=== PATIENT | female | born 1975 | race African-American/Black ===

== ENCOUNTER 2023-01-19 07:49 | Emergency (ER) | payer SELFPAY ==
[~2023-01-19] VITALS: Ht 162.6 cm; Wt 59.0 kg
[2023-01-19] MEDS ORDERED: TETANUS, DIPHTHERIA, PERTUSSIS VAC/PF 0.5ML (>10YR OLD) IM ONE (08:15)
[2023-01-19] MEDS ORDERED: AMOXICILLIN/POTASSIUM CLAVULANATE 875/125MG TAB PO ONE (08:15)
[2023-01-19] MEDS ORDERED: AMOX1TAB16 MT (09:22)
[2023-01-19] MEDS ORDERED: AMOX-405 MT (09:22)
[2023-01-19 10:09] VITALS: BP 126/85
== END 2023-01-19 10:10 | disposition home or self-care (01) ==
LOC: EDBD → ER 07:49
DX: S41.151A Open bite of right upper arm, initial encounter (principal); I10 Essential (primary) hypertension; W54.0XXA Bitten by dog, initial encounter; Y93.9 Activity, unspecified; Y92.9 Unspecified place or not applicable
CPT/HCPCS: 90715; 99283; Z7610

== ENCOUNTER 2023-01-21 09:40 | Emergency (ER) | payer MEDICAID, MEDICARE ==
[~2023-01-21] VITALS: Ht 170.2 cm; Wt 40.0 kg
[~2023-01-21 09:40] MED LIST: AMOX-405 MT; AMOX1TAB16 MT
[2023-01-21 09:47] VITALS: BP 186/99
[2023-01-21] MEDS ORDERED: IBUP-2029 MT (10:18)
[2023-01-21] MEDS ORDERED: AMOX1TAB16 MT (10:18)
== END 2023-01-21 10:40 | disposition home or self-care (01) ==
LOC: ER 09:40
DX: Z48.00 Encounter for change or removal of nonsurgical wound dressing (principal); I10 Essential (primary) hypertension; Z76.0 Encounter for issue of repeat prescription
CPT/HCPCS: 99281; Z7610

== ENCOUNTER 2023-01-31 10:36 | Emergency (ER) | payer MEDICAID, MEDICARE ==
[~2023-01-31] VITALS: Ht 152.4 cm; Wt 40.0 kg
[~2023-01-31 10:36] MED LIST changes: +IBUP-2029 MT
[2023-01-31] MEDS ORDERED: IBUP-2029 MT (12:24)
[2023-01-31] MEDS ORDERED: IBUPROFEN 600MG TABLET PO ONE (12:30)
[2023-01-31 12:32] VITALS: BP 137/89
== END 2023-01-31 13:45 | disposition home or self-care (01) ==
LOC: ER 10:47
DX: Z48.00 Encounter for change or removal of nonsurgical wound dressing (principal)
CPT/HCPCS: 99282

== ENCOUNTER 2024-12-12 16:08 | Emergency (ER) | payer MEDICARE ==
[~2024-12-12] VITALS: Ht 152.4 cm; Wt 40.3 kg
[2024-12-12 16:31] VITALS: O2SAT 100
[2024-12-12 18:34] VITALS: BP 169/97; PULSE 88; RESP 16; TEMP 36.7; O2SAT 100
== END 2024-12-12 18:35 | disposition home or self-care (01) ==
LOC: ER 16:08
DX: H00.12 Chalazion right lower eyelid (principal); I10 Essential (primary) hypertension; J45.909 Unspecified asthma, uncomplicated; Z79.899 Other long term (current) drug therapy; Z91.013 Allergy to seafood
CPT/HCPCS: 99281

== ENCOUNTER 2025-02-17 02:29 | Emergency (ER) | payer MEDICAID, OTHER ==
[~2025-02-17] VITALS: Ht 157.5 cm; Wt 59.0 kg
[2025-02-17 02:32] VITALS: O2SAT 99
[2025-02-17] MEDS: KETOROLAC 30MG/ML VIAL IM ONE (02:56)
[2025-02-17] MEDS ORDERED: IBUP-2029 MT (03:48)
[2025-02-17 04:13] VITALS: BP 132/90; PULSE 78; RESP 16; TEMP 36.8; O2SAT 99
== END 2025-02-17 04:14 | disposition home or self-care (01) ==
LOC: ER 02:29
DX: S20.212A Contusion of left front wall of thorax, initial encounter (principal); I10 Essential (primary) hypertension; J45.909 Unspecified asthma, uncomplicated; Z79.899 Other long term (current) drug therapy; W20.8XXA Other cause of strike by thrown, projected or falling object, initial encounter; Y93.89 Activity, other specified; Y92.89 Other specified places as the place of occurrence of the external cause; Y99.8 Other external cause status
CPT/HCPCS: 99283; 71101; 96372; J1885

== ENCOUNTER 2025-02-20 20:01 | Emergency (ER) | payer MEDICAID ==
[~2025-02-20] VITALS: Ht 162.6 cm; Wt 66.0 kg
[2025-02-20 20:03] VITALS: TEMP 36.6; O2SAT 97
[2025-02-20] MEDS: KETOROLAC 15MG/ML VIAL IM ONE (21:11)
[2025-02-20] MEDS ORDERED: NAPR-1486 MT (22:12)
[2025-02-20 22:36] VITALS: BP 140/81; PULSE 82; RESP 18; O2SAT 99
== END 2025-02-20 22:38 | disposition home or self-care (01) ==
LOC: ER 20:01
DX: M79.18 Myalgia, other site (principal); J45.909 Unspecified asthma, uncomplicated; I10 Essential (primary) hypertension; Z79.1 Long term (current) use of non-steroidal anti-inflammatories (NSAID); Z79.899 Other long term (current) drug therapy; W21.11XA Struck by baseball bat, initial encounter; Y93.89 Activity, other specified; Y92.89 Other specified places as the place of occurrence of the external cause; Y99.8 Other external cause status
CPT/HCPCS: 99283; 71101; 96372; J1885